=== PATIENT | female | born 1930 | race Caucasian/White ===

== ENCOUNTER 2019-06-09 20:11 | Emergency (ER) | payer MEDICARE ==
--- OUTSIDE RECORDS SUMMARY | 2019-06-09 20:19 | XMS REPORT | Continuity of Care Document ---
:1930 External Reference #:[id number] Author Name Rhianna Cortez (transmitted by agent of provider Gerard Beaulieu) Address [address] [place] [id number] Care Team Providers Name Role Phone HCP/LW on file Care Team Information Sales Planning Coordinator Unavailable Alexsandra Juarez MD - Care Team Information Sales Planning Coordinator [phone] Dermatology Problems Active Problems Provider Date Arthralgia of the pelvic region and thigh Sarthak Dudley D.O. 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 Onset: 2017 pathological fracture Social History Type Date Description Comments Sex Unknown Tobacco Use Start: Unknown Denies Cigarette Use Smoking Status Reviewed: 04/26/19 Denies Cigarette Use ETOH Use Denies alcohol use Tobacco Use Start: Unknown Patient has never smoked Recreational Drug Use Denies Drug Use Exercise Type/Frequency Exercises regularly Allergies, Adverse Reactions, Alerts Active Allergies Reaction Severity Comments Date Fosamax 07/17/2014 Medications Active Medications SIG Qnty Indications Ordering Provider Date B Complex Vitamins 1 po daily Unknown 04/25/2019 Capsules Vitamin D3 take one capsule Unknown 04/25/2019 5000Unit by mouth every Capsules day Multivitamin Adult 1 by mouth every Unknown 04/20/2017 day Tablets OTC Pain Medication as directed, 2 Unknown 04/20/2017 at bedtime as needed for hip pain Walker 4 wheel walker 1units M25.551 Sarthak Dudley, 10/13/2016 Misc with seat D.O. Medications Administered in Office Medication SIG Qnty Indications Ordering Provider Date TB Intradermal Test Sarthak Dudley D.O. 05/01/2016 Injection injection, kenalog, 10 mg Sarthak Dudley D.O. 03/01/2015 Injection Immunizations CPT Code Status Date Vaccine Lot # [id number] Given 05/29/2018 Influenza Vaccine Split Virus Preservative [place] [id number] Given 04/21/2017 Influenza Virus Vaccine, Quadrivalent, Split, [id number] Preservative Free 16725 Given 05/09/2016 Influenza Vaccine Split Virus Preservative Free [place] Use 21406 Given 01/10/2016 Adacel or Boostrix, TDaP [id number] 13417 Given 01/10/2016 Prevnar 13 [id number] [id number] Given 05/30/2013 Flu, Split Virus 3Yrs 52104 Given 09/20/2012 Zostavax [id number] Given 04/23/2012 Flu, Split Virus 3Yrs 97817 Given 06/03/2011 Flu, Split Virus 3Yrs 19771 Given Unknown Pneumococcal Immunization Vital Signs Date Vital Result Comment 04/26/2019 9:58am BP Systolic 128 mmHg BP Diastolic 72 mmHg Height 59.25 inches 4'11.25" Weight 166.00 lb BMI (Body Mass Index) 33.2 kg/m2 01/04/2019 2:35pm BP Systolic 122 mmHg BP Diastolic 72 mmHg Heart Rate 101 /min O2 % BldC Oximetry 92 % Weight 170.00 lb with shoes Results Test Date Facility Test Result H/L Range Note Ua Inhouse 04/26/2019 In House Ua Glucose - 1 Ua Bilirubin sm Ua Ketones - Ua Specific [place] 1.015 Ua Blood - Ua PH 7.0 Ua Protein - Ua Urobilinogen - Ua Nitrite - Ua Leukocytes tr Culture Urine 04/26/2019 In House Colonies 06/16-06/17 Inhouse CBC Auto Diff 01/05/2019 [facility] White Blood 5.7 10^3/uL Normal 3.5-10. [phone] Count 8 Red Blood Count 4.47 10^6/uL Normal 3.70-4.87 Hemoglobin 13.8 g/dL Normal 12.0-16.0 Hematocrit 41 % Normal 33-41 Mean Corpuscular Volume 91 fL Normal 80-97 Mean Corpuscular Hemoglobin 31 pg Normal 27-31 Mean Corpuscular HGB Conc 34 g/dL Normal 31-36 Red Cell Distribution Width 14 % Normal 10.5-15 Platelet Count 194 10^3/uL Normal 150-450 Mean Platelet Volume 8.4 fL Normal 7.4-10.4 Abs Neutrophils 3.4 10^3/uL Normal 1.5-7.7 Abs Lymphocytes 1.8 10^3/uL Normal 1.0-4.8 Abs Monocytes 0.4 10^3/uL Normal 0-0.8 Abs Eosinophils 0.1 10^3/uL Normal 0-0.6 Abs Basophils 0 10^3/uL Normal 0-0.2 Abs Nucleated RBC 0 10^3/uL Granulocyte % 59.1 % Lymphocyte % 31.0 % Monocyte % 7.1 % Eosinophil % 2.2 % Basophil % 0.6 % Nucleated Red Blood Cells % 0.1 Comp Metabolic Panel 01/05/2019 [facility] Sodium 140 mmol/L Normal 135-145 [phone] Potassium 4.1 mmol/L Normal 3.5-5.0 Chloride 108 mmol/L Normal 101-111 Co2 Carbon Dioxide 25 mmol/L Normal 22-32 Anion Gap 7 mmol/L Normal 2-11 Glucose 96 mg/dL Normal 70-100 Blood Urea Nitrogen 20 mg/dL Normal 6-24 Creatinine 0.77 mg/dL Normal 0.51-0.95 BUN/Creatinine Ratio 26.0 High 8-20 Calcium 9.2 mg/dL Normal 8.6-10.3 Total Protein 6.8 g/dL Normal 6.4-8.9 Albumin 4.2 g/dL Normal 3.2-5.2 Globulin 2.6 g/dL Normal 2-4 Albumin/Globulin Ratio 1.6 Normal 1-3 Total Bilirubin 1.50 mg/dL High 0.2-1.0 Alkaline Phosphatase 58 U/L Normal 34-104 Alt 11 U/L Normal 7-52 Ast 18 U/L Normal 13-39 Egfr Non- 70.7 >60 Egfr 85.6 >60 2 Laboratory test 01/05/2019 [facility] Magnesium 2.3 mg/dL Normal 1.9- 2.7 finding [phone] TSH (Thyroid Stim Horm) 4.22 mcIU/mL Normal 0.34-5.60 Vitamin B12 198 pg/mL Normal 180-914 3 Vitamin D Total 25(Oh) 26.3 ng/mL Normal 20-50 4 Phosphorus 3.6 mg/dL Normal 2.5-5.0 Xray 01/04/2019 [facility] X-Ray, Chest, 2 Views <pending> 1 void, clear, gold 2 Because ethnic data is not always readily available, this report includes an eGFR for both -Americans and non- Americans. The National Kidney Disease Education Program (NKDEP) does not endorse the use of the MDRD equation for patients that are not between the ages of 18 and 70, are , have extremes of body size, muscle mass, or nutritional status, or are non- or non-. According to the National Kidney Foundation, irrespective of diagnosis, the stage of the disease is based on the level of kidney function: Stage Description GFR(mL/min/1.73 m(2)) 1 Kidney damage with normal or decreased GFR 90 2 Kidney damage with mild decrease in GFR 60-89 3 Moderate decrease in GFR 30-59 4 Severe decrease in GFR 15-29 5 Kidney failure <15 (or dialysis) 3 Normal Range 180 to 914 Indeterminate Range 145 to 180 Deficient Range <145 4 Total 25-Hydroxyvitamin D2 and D3 (25-OH-VitD) <10 ng/mL (severe deficiency) 10-19 ng/mL (mild to moderate deficiency) 20-50 ng/mL (optimum levels) 51-80 ng/mL (increased risk of hypercalciuria) >80 ng/mL (toxicity possible) Procedures Date Code Description Status 01/04/2019 47414 Bronchospasm Evaluation Pre & Post Completed 01/04/2019 62555 Electrocardiogram Complete Completed 01/04/2019 48423 X-Ray Chest 2 V Completed 01/04/2019 38741 Remove Impact Cerumen Requiring Instrument, Unilateral Completed 12/02/2018 77639 Omt 3 To 4 Body Regions Involved Completed 09/14/2010 10267418 Colonoscopy Completed 09/14/2008 05458279 Mammogram Completed Medical Devices Description No Information Available Encounters Type Date Location Provider Dx Diagnosis Office Visit 04/26/2019 Main Office Rhianna Cortez G47.62 Sleep related leg 9:40a cramps D48.5 Neoplasm of uncertain behavior of skin Z00.01 Encounter for general adult medical exam w abnormal findings R82.90 Unspecified abnormal findings in urine Z68.33 Body mass index (BMI) 33.0-33.9, adult Office Visit 01/04/2019 2:30p Main Office Luis Enrique Sarthak, R06.02 Shortness of D.O. breath H61.23 Impacted cerumen, bilateral Office Visit 12/02/2018 2:45p Main Office Brandtkadeem Sarthak, M79.671 Pain in right D.O. foot M99.05 Segmental and somatic dysfunction of pelvic region M99.03 Segmental and somatic dysfunction of lumbar region M99.06 Segmental and somatic dysfunction of lower extremity Assessments Date Code Description Provider 04/26/2019 G47.62 Sleep related leg cramps Tyrone Cortez.AAbebe 04/26/2019 D48.5 Neoplasm of uncertain behavior of skin Tyrone Cortez.AAbebe 04/26/2019 Z00.01 Encounter for general adult medical Rhianna Cortez examination with abnormal findings 04/26/2019 R82.90 Unspecified abnormal findings in urine Tyrone Cortez.AAbebe 04/26/2019 Z68.33 Body mass index (BMI) 33.0-33.9, adult Neela Kemp P.AAbebe 01/04/2019 R06.02 Shortness of breath Sarthak Dudley, D.O. 01/04/2019 H61.23 Impacted cerumen, bilateral SopDiego garciaon, D.O. 12/02/2018 M79.671 Pain in right foot Sarthak Dudley, D.O. 12/02/2018 M99.05 Segmental and somatic dysfunction of pelvic SopchakDiegoon , D.O. region 12/02/2018 M99.03 Segmental and somatic dysfunction of lumbar SopchakDiegoon , D.O. region 12/02/2018 M99.06 Segmental and somatic dysfunction of lower Sopchak, Sarthak , D.O. extremity Plan of Treatment 04/26/2019 - Rhianna CortezG47.62 Sleep related leg crampsComments:did not do labs as recent labs have been normal and pt has had this a little whileFollow [facility] Magnesium food sources provided to pt: discussed potassium might also help, tqdvawM25.5 Neoplasm of uncertain behavior of skinReferral:Alexsandra Juarez MD, CgnympqmvnzO55.01 Encounter for general adult medical examination with abnormal findingsFollow up:Overall healthy pt, no major concerns dmxibK57.90 Unspecified abnormal findings in avecwY44.33 Body mass index (BMI) 33.0-33.9, adult Functional Status Description No Information Available Mental Status Description No Information Available Referrals Refer to Reason for Referral Status Appt Date Alexsandra Juarez MD extensive skin lesions, lesion on nose Sent 00/00/ 0000 and left shoulder to look at more closely Assume Management in [facility] Office [place] [address] [place], [place] [id number] [phone] Barrie Martinez, DO exertional dyspnea consider stress test for Closed 2018 evaluation. Consult and Treat [facility] [address] [place], [place] [id number] [phone]
[2019-06-09 20:33] VITALS: BP 137/63
[2019-06-09] MEDS ORDERED: Cephalexin CAP* 500 MG PO ONE ×2 (20:47→20:48)
--- NOTE | 2019-06-09 20:53 | UC ---
Skin Complaint HPI - HPI Summary HPI Summary: 89-year-old woman comes in with a chief complaint of redness and tenderness of the skin surgical wound that occurred on June 06, 2019 to re-move a skin cancer. She had the area sutured. The area started to get red and swollen and tender to palpation. No fevers no chills feels well otherwise. No drainage from the wound. - History of Current Complaint Chief Complaint: UCSkin Time Seen by Provider: 06/09/19 20:23 Stated Complaint: POSS SKIN INFECTION Pain Intensity: 0 - Allergy/Home Medications Allergies/Adverse Reactions: Allergies Allergy/AdvReac Type Severity Reaction Status Date / Time alendronate sodium Allergy Muscle Ache Verified 06/09/19 20:15 Home Medications: Home Medications Aspirin TAB* [Aspirin 325 MG TAB*] 325 mg PO BID PRN 06/09/19 [History] PMH/Surg Hx/FS Hx/Imm Hx Previously Healthy: Yes - Surgical History Surgical History: Yes Surgery Procedure, Year, and Place: c section. appy. tonsillectomy. knee surgery. R hip replacement. Back surgery - Family History Known Family History: Positive: Non-Contributory - Social History Alcohol Use: None Alcohol Amount: 1975 Substance Use Type: None Smoking Status (MU): Never Smoked Tobacco - Immunization History Most Recent Influenza Vaccination: FALL 2014 Most Recent Tetanus Shot: 2016 Most Recent Pneumonia Vaccination: 2016 Review of Systems All Other Systems Reviewed And Are Negative: Yes Constitutional: Positive: Negative Skin: Positive: Other - SEE HPI Eyes: Positive: Negative ENT: Positive: Negative Respiratory: Positive: Negative Cardiovascular: Positive: Negative Gastrointestinal: Positive: Negative Motor: Positive: Negative Neurovascular: Positive: Negative Musculoskeletal: Positive: Negative Neurological: Positive: Negative Psychological: Positive: Negative Is Patient Immunocompromised?: No Physical Exam Triage Information Reviewed: Yes Appearance: Well-Appearing, Well-Nourished, Pain Distress - MILD WITH PALPATION OF THE AFFECTED AREA Vital Signs: Initial Vital Signs Temp 99.3 F 06/09/19 20:30 Pulse 100 06/09/19 20:30 Resp 18 06/09/19 20:30 BP 137/63 06/09/19 20:30 Pulse Ox 95 06/09/19 20:30 Vital Signs Reviewed: Yes Eye Exam: Normal Neck: Positive: Supple Respiratory: Positive: No respiratory distress Musculoskeletal: Positive: Strength Intact, ROM Intact Neurological: Positive: Alert, Muscle Tone Normal Psychological: Positive: Normal Response To Family, Age Appropriate Behavior Skin: Positive: Other - At the lateral aspect of the skin surgical wound, there is erythema and some swelling. Is tender to palpation. I removed one of the sutures the most lateral suture. No pus was expressed. Course/Dx - Course Course Of Treatment: I did not express any pus from the wound. I did remove one suture the most lateral suture. Started patient on Keflex 500 mg by mouth 4 times a day. And follow-up with dermatology. She is going to get evaluated emergency department if she is worse. - Diagnoses Provider Diagnosis: Infected wound Discharge ED - Sign-Out/Discharge Documenting (check all that apply): Patient Departure All imaging exams completed and their final reports reviewed: No Studies - Discharge Plan Condition: Stable Disposition: HOME Prescriptions: Cephalexin CAP* [Keflex CAP*] 500 mg PO QID #38 cap Patient Education Materials: Wound Infection (ED) Referrals: Sarthak Dudley DO [Primary Care Provider] - Alexsandra Juarez [Medical Doctor] - Additional Instructions: FOLLOW UP WITH YOUR DERMATOLOGY. CALL THEM TOMORROW AND INFORM THEM OF THE INFECTION. GO TO THE EMERGENCY DEPARTMENT IF YOUR CONDITION WORSENS; SPREAD OF INFECTION, FEVER, YOU FEEL ILL OR ANY QUESTIONS OR CONCERNS. - Billing Disposition and Condition Condition: STABLE Disposition: Home
== END 2019-06-09 21:05 | disposition home or self-care (01) ==
LOC: UCEAST 20:11
DX: T14.8XXA Other injury of unspecified body region, initial encounter (principal); X58.XXXA Exposure to other specified factors, initial encounter; Y92.9 Unspecified place or not applicable; Z85.828 Personal history of other malignant neoplasm of skin
CPT/HCPCS: 99213; A9270-GY; G0463